=== PATIENT | female | born 1985 | race African-American/Black ===

== ENCOUNTER 2021-03-13 08:25 | Emergency (ER) | payer MEDICAID ==
[~2021-03-13] VITALS: Ht 167.6 cm; Wt 99.0 kg
[2021-03-13] MEDS ORDERED: METOCLOPRAMIDE HCL 10MG/2ML VIAL IV ONE (08:45)
[2021-03-13 09:21] LABS: BASOPHILS % 0.7 % (0.0-2.0); EOSINOPHILS % 0.8 % (0.0-5.0); HEMATOCRIT. 33.6 % (36.0-48.0); HEMOGLOBIN. 11.4 g/dL (12.0-16.0); LYMPHOCYTES % 10.9 % (20.0-50.0); MEAN CORPUSCULAR HEMOGLOBIN 27.1 pg (28.0-32.0); MEAN CORPUSCULAR VOLUME 79.7 fL (81.0-99.0); MEAN PLATELET VOLUME 7.8 fl (7.4-10.4); MONOCYTES % 5.5 % (2.0-8.0); NEUTROPHILS % 82.1 % (40.0-76.0); PLATELET 328 x1000/uL (130-400); RED BLOOD CELL COUNT 4.22 mill/uL (4.2-5.4); RED CELL DISTRIBUTION WIDTH 14.1 % (11.6-14.6)
[2021-03-13 09:28] LABS: CHLORIDE 107 mEq/L (98-107)
[2021-03-13 09:30] LABS: INR 0.9
[2021-03-13 09:32] LABS: ETHANOL BLOOD < 10 mg/dL
[2021-03-13 11:06] VITALS: BP 145/90
[2021-03-13 11:44] LABS: CLARITY URINE TURBID (CLEAR); COLOR URINE YELLOW (YELLOW); KETONES URINE NEGATIVE (NEGATIVE); LEUKOCYTE ESTERASE URINE 2+ (NEGATIVE); NITRITE URINE NEGATIVE (NEGATIVE); OCCULT BLOOD URINE NEGATIVE (NEGATIVE); PH URINE 7.5 (4.5-8.0); PROTEIN URINE TRACE (NEGATIVE); SPECIFIC GRAVITY URINE 1.017 (1.005-1.030)
[2021-03-13 12:03] LABS: *AMPHETAMINES SCREEN URINE NEGATIVE (NEGATIVE)
[2021-03-13] MEDS ORDERED: NITR100C PO (12:03)
[2021-03-13 12:04] LABS: *BARBITURATES SCREEN URINE NEGATIVE (NEGATIVE); *BENZODIAZEPINES SCREEN URINE NEGATIVE (NEGATIVE); *COCAINE SCREEN URINE NEGATIVE (NEGATIVE); METHADONE URINE SCREEN NEGATIVE (NEGATIVE); OPIATES URINE SCREEN NEGATIVE (NEGATIVE); PHENCYCLIDINE URINE SCREEN NEGATIVE (NEGATIVE)
[2021-03-13 12:07] LABS: CANNABINOID URINE SCREEN PRESUMTIVE POSITIVE (NEGATIVE)
== END 2021-03-13 13:09 | disposition home or self-care (01) ==
LOC: ER 08:36
DX: O23.32 Infections of other parts of urinary tract in pregnancy, second trimester (principal); Z3A.23 23 weeks gestation of pregnancy; R07.89 Other chest pain
CPT/HCPCS: 36415; 71045; 76805; 80053; 80305; 80320; 81003; 83605; 83690; 84484; 84702; 85025; 85610; 86850; 86900; 86901; 93005; 96374; 99285; J2765; G0480

== ENCOUNTER 2021-03-21 14:04 | Inpatient (IN) | payer MEDICARE ==
[~2021-03-21] VITALS: Ht 172.7 cm; Wt 97.1 kg
[~2021-03-21 14:04] MED LIST: NITR100C PO
[2021-03-21] MEDS ORDERED: CARBOPROST TROMETHAMINE 250 MCG/ML AMPUL IM PRN (15:45)
[2021-03-21] MEDS ORDERED: METHYLERGONOVINE MALEATE 0.2 MG/ML IM PRN (15:45)
[2021-03-21] MEDS ORDERED: DEXT 5%/LR + PITOCIN 20UNITS/L 1,000 ML IV SCH ×2 (15:45→17:15)
[2021-03-21 15:54] LABS: BASOPHILS % 0.1 % (0.0-2.0); EOSINOPHILS % 0.7 % (0.0-5.0); HEMATOCRIT. 31.5 % (36.0-48.0); HEMOGLOBIN. 10.9 g/dL (12.0-16.0); LYMPHOCYTES % 7.5 % (20.0-50.0); MEAN CORPUSCULAR HEMOGLOBIN 27.5 pg (28.0-32.0); MEAN CORPUSCULAR VOLUME 79.3 fL (81.0-99.0); MEAN PLATELET VOLUME 8.1 fl (7.4-10.4); MONOCYTES % 4.7 % (2.0-8.0); PLATELET 305 x1000/uL (130-400); RED BLOOD CELL COUNT 3.98 mill/uL (4.2-5.4); RED CELL DISTRIBUTION WIDTH 14.3 % (11.6-14.6)
[2021-03-21 16:04] LABS: CLARITY URINE CLOUDY (CLEAR); COLOR URINE YELLOW (YELLOW); KETONES URINE TRACE (NEGATIVE); LEUKOCYTE ESTERASE URINE TRACE (NEGATIVE); NITRITE URINE NEGATIVE (NEGATIVE); OCCULT BLOOD URINE 3+ (NEGATIVE); PROTEIN URINE NEGATIVE (NEGATIVE); SPECIFIC GRAVITY URINE 1.017 (1.005-1.030)
[2021-03-21 16:05] LABS: INR 0.9; PARTIAL THROMBOPLASTIN TIME 31.3 sec (23.4-31.0)
[2021-03-21 16:19] LABS: *AMPHETAMINES SCREEN URINE NEGATIVE (NEGATIVE)
[2021-03-21 16:20] LABS: *BARBITURATES SCREEN URINE NEGATIVE (NEGATIVE); *BENZODIAZEPINES SCREEN URINE NEGATIVE (NEGATIVE); *COCAINE SCREEN URINE NEGATIVE (NEGATIVE); METHADONE URINE SCREEN NEGATIVE (NEGATIVE); OPIATES URINE SCREEN NEGATIVE (NEGATIVE); PHENCYCLIDINE URINE SCREEN NEGATIVE (NEGATIVE)
[2021-03-21 16:29] LABS: CANNABINOID URINE SCREEN PRESUMTIVE POSITIVE (NEGATIVE)
[2021-03-21 16:43] LABS: HEPATITIS B SURFACE ANTIGEN NEGATIVE
[2021-03-21] MEDS ORDERED: IBUPROFEN 400MG TABLET PO PRN ×2 (17:00→17:15)
[2021-03-21] MEDS ORDERED: LANOLIN OINT 7GM TUBE TOP PRN (17:15)
[2021-03-21] MEDS ORDERED: RHO(D) IMMUNE GLOBULIN 300 MCG/SYR IM PRN (17:15)
[2021-03-21] MEDS ORDERED: IBUPROFEN 800MG TABLET PO PRN (17:15)
[2021-03-21 18:29] VITALS: BP 123/66
[2021-03-21 19:30] VITALS: BP 128/64
[2021-03-22 04:00] VITALS: BP 110/63
[2021-03-22 05:49] LABS: BASOPHILS % 0.6 % (0.0-2.0); EOSINOPHILS % 1.4 % (0.0-5.0); HEMATOCRIT. 31.2 % (36.0-48.0); HEMOGLOBIN. 10.7 g/dL (12.0-16.0); LYMPHOCYTES % 12.1 % (20.0-50.0); MEAN CORPUSCULAR VOLUME 78.9 fL (81.0-99.0); MEAN PLATELET VOLUME 7.7 fl (7.4-10.4); MONOCYTES % 5.7 % (2.0-8.0); NEUTROPHILS % 80.2 % (40.0-76.0); PLATELET 313 x1000/uL (130-400); RED BLOOD CELL COUNT 3.96 mill/uL (4.2-5.4); RED CELL DISTRIBUTION WIDTH 14.1 % (11.6-14.6)
[2021-03-22 07:30] VITALS: BP 115/64
[2021-03-22] MEDS: PRENATAL VIT/FE FUMARATE/FA TABLET PO SCH (07:54)
[2021-03-22 16:00] VITALS: BP 122/70
[2021-03-22 19:30] VITALS: BP 125/66
[2021-03-23 04:00] VITALS: BP 119/67
[2021-03-23 07:30] VITALS: BP 131/71
[2021-03-23] MEDS ORDERED: IBUP-2030 PO (07:33)
[2021-03-23] MEDS: PRENATAL VIT/FE FUMARATE/FA TABLET PO SCH (07:52)
[2021-03-29 15:10] LABS: CANNABINOID CONFIRMATION URINE Positive (.)
== END 2021-03-23 12:12 | disposition home or self-care (01) | DRG 548 ==
LOC: OBSVTOIN 14:04 → 8 EST LDRP 14:04 → 8EST 17:52
PROVIDERS: ADMIT Obstetrics & Gynecology; ATTEND Obstetrics & Gynecology
PROC: 10D17ZZ Extraction of Products of Conception, Retained, Via Natural or Artificial Opening (ICD-10-PCS; principal; 2021-03-21)
DX: O73.0 Retained placenta without hemorrhage (principal); D25.9 Leiomyoma of uterus, unspecified; O71.89 Other specified obstetric trauma; O90.89 Other complications of the puerperium, not elsewhere classified; Z90.721 Acquired absence of ovaries, unilateral; Z87.440 Personal history of urinary (tract) infections; Z20.822 Contact with and (suspected) exposure to COVID-19
CPT/HCPCS: 36415; 80305; 80349; 81003; 85025; 86592; 86644; 86703; 86762; 86850; 86900; 87340; 87426; 88307; 99281; J2590